=== PATIENT | male | born 1985 | race Caucasian/White ===

== ENCOUNTER 2018-08-15 04:39 | Emergency (ER) | payer SELFPAY ==
[2018-08-15 04:54] VITALS: BP 136/78; PULSE 48; TEMP 98.5; BMI 20.6
[2018-08-15] MEDS ORDERED: PANTOPRAZOLE SODIUM 40 MG in SODIUM CHLORIDE 100 ML IVPB ONE (05:00)
[2018-08-15] MEDS ORDERED: SODIUM CHLORIDE 1,000 ML IV STA (05:00)
[2018-08-15] MEDS ORDERED: ACETAMINOPHEN 1000 MG/100 ML VIAL (NON FORMULARY) IVPB ONE (05:00)
[2018-08-15] MEDS ORDERED: ONDANSETRON 4 MG/2 ML VIAL IVPB ONE (05:00)
--- NOTE | 2018-08-15 05:10 | PDOC ---
History of Present Illness - General Chief Complaint: Rectal Bleed Stated Complaint: RECTAL BLEED, OPIOID WITHDRAWL Time Seen by Provider: 08/15/18 04:54 - History of Present Illness Initial Comments: 08/15/18 05:04 33 M with h/o opiate abuse presents to ED seeking detox. Pt states he takes pills, usually oxycodone. His last use was 2 days ago, and since then pt reports that he is withdrawing from opiates. Pt complains of abdominal cramps, nausea, diarrhea, and restlessness. Denies F/C. States that these symptoms are the same as when he previously detoxed from opiates several years ago. Denies any other substance use. Denies ETOH. Pt also complains of seeing red streaks of blood in his stool today. Denies any dark stools, denies yousuf blood in stool. Past History - Past Medical History Allergies/Adverse Reactions: Allergies Allergy/AdvReac Type Severity Reaction Status Date / Time No Known Allergies Allergy Verified 08/15/18 04:44 Home Medications: Ambulatory Orders NK [No Known Home Medication] 08/15/18 COPD: No GI Disorders: Yes (ULCERS) Other medical history: OPIOID DEPENDENCY - Surgical History Appendectomy: Yes - Suicide/Smoking/Psychosocial Hx Smoking Status: Yes Smoking History: Current every day smoker Have you smoked in the past 12 months: Yes Number of Cigarettes Smoked Daily: 20 Information on smoking cessation initiated: Yes 'Breaking Loose' booklet given: 04/06/16 Hx Alcohol Use: No Drug/Substance Use Hx: Yes (OPOID) Review of Systems - Review of Systems Comments:: 08/15/18 05:07 GENERAL/CONSTITUTIONAL: No fever or chills. No weakness. HEAD, EYES, EARS, NOSE AND THROAT: No change in vision. No ear pain or discharge. No sore throat. CARDIOVASCULAR: No chest pain, no shortness of breath, no loss of consciousness RESPIRATORY: No cough, wheezing, or hemoptysis. GASTROINTESTINAL: + nausea, vomiting, and diarrhea GENITOURINARY: No dysuria, frequency, or change in urination. MUSCULOSKELETAL: No joint or muscle swelling or pain. No neck or back pain. SKIN: No rash NEUROLOGIC: No vertigo, no change in strength/sensation. ENDOCRINE: No increased thirst. No abnormal weight change. HEMATOLOGIC/LYMPHATIC: No anemia, easy bleeding, or history of blood clots. ALLERGIC/IMMUNOLOGIC: No hives or skin allergy. *Physical Exam - Vital Signs Last Vital Signs Temp Pulse Resp BP Pulse Ox 98.5 F 48 L 18 136/78 100 08/15/18 04:45 08/15/18 04:45 08/15/18 04:45 08/15/18 04:45 08/15/18 04:45 - Physical Exam Comments: 08/15/18 05:08 GENERAL: Awake, alert, and fully oriented, in no acute distress. HEAD: No signs of trauma EYES: PERRLA, EOMI, sclera anicteric, conjunctiva clear ENT: Auricles normal inspection, hearing grossly normal, nares patent, oropharynx clear without exudates. Moist mucosa NECK: Nontender, no stepoffs, Normal ROM, supple, no lymphadenopathy, JVD, or masses LUNGS: Breath sounds equal, clear to auscultation bilaterally. No wheezes, and no crackles HEART: Regular rate and rhythm, normal S1 and S2, no murmurs, rubs or gallops ABDOMEN: + epigastric TTP, normoactive bowel sounds. No guarding, no rebound. No masses EXTREMITIES: Normal range of motion, no edema. No clubbing or cyanosis. No cords, erythema, or tenderness NEUROLOGICAL: Cranial nerves II through XII intact. 5/5 strength and sensation in all extremities, Normal speech, normal gait, normal cerebellar function SKIN: Warm, Dry, normal turgor, no rashes or lesions noted. Moderate Sedation - Procedure Monitoring Vital Signs: Procedure Monitoring Vital Signs Temperature 98.5 F 08/15/18 04:45 Pulse Rate 48 L 08/15/18 04:45 Respiratory Rate 18 08/15/18 04:45 Blood Pressure 136/78 08/15/18 04:45 O2 Sat by Pulse Oximetry (%) 100 08/15/18 04:45 ED Treatment Course - LABORATORY CBC & Chemistry Diagram: 08/15/18 05:10 08/15/18 05:10 Medical Decision Making - Medical Decision Making 08/15/18 05:08 33 M presenting with epigastric cramps, nausea, and diarrhea, stating that he is withdrawing from opiates. Pt well appearing with stable vitals, though very restless and anxious on exam. Pt also complaining of blood streaked stools, with no melena or hematochezia. - Labs, UA, Utox - IVF, GI cocktail, ativan - Pt states he is interested in going to detox 08/15/18 06:18 Spoke with chargemaster specialist at [facility], who states they will have beds available this morning. 08/15/18 06:35 Labs wnl UTox + for opiates, methadone, marijuana Pt reassessed - feels much better, still interested in detox. Will DC to [facility] *DC/Admit/Observation/Transfer Diagnosis at time of Disposition: Opiate withdrawal - Discharge Dispostion Disposition: HOME Condition at time of disposition: Stable - Referrals - Patient Instructions Printed Discharge Instructions: DI for Drug or Alcohol Withdrawal Additional Instructions: Proceed directly to [facility] detox facility for further management. If you experience abdominal pain, fevers, or any other concerning symptoms, return to the ER immediately. - Post Discharge Activity - Attestations Physician Attestion: 08/15/18 06:38 I, Dr. Dax Dumas MD, attest that this document has been prepared under my direction and personally reviewed by me in its entirety. I further attest, that it accurately reflects all work, treatment, procedures and medical decision -making performed by me.
[2018-08-15] MEDS ORDERED: PANTOPRAZOLE SODIUM 40 MG VIAL ONE (05:16)
[2018-08-15] MEDS ORDERED: ACETAMINOPHEN INJECTION 100 ML IVPB ONE (05:16)
[2018-08-15] MEDS ORDERED: ONDANSETRON 4 MG/2 ML VIAL ONE (05:16)
[2018-08-15] MEDS ORDERED: LORazepam 2 MG/ML SDV VIAL ONE (05:25)
[2018-08-15 05:53] LABS: BASO % 0.2 % (0-2.0); HEMATOCRIT 41.1 % (35.4-49); HEMOGLOBIN 14.4 GM/dL (11.7-16.9); LYMPH % 11.2 % (8-40); MCH 30.9 pg (25.7-33.7); MCHC 34.9 g/dl (32.0-35.9); MEAN CELL VOLUME 88.3 fl (80-96); MEAN PLT VOLUME 7.8 fl (7.5-11.1); MONO % 3.3 % (3.8-10.2); NEUT % 85.3 % (42.8-82.8); PLATELET COUNT 321 K/MM3 (134-434); RBC 4.66 M/mm3 (4.00-5.60); RDW 14.3 % (11.9-15.9); WHITE BLOOD COUNT 12.7 K/mm3 (4.0-10.0)
[2018-08-15 05:56] LABS: URINE APPEARANCE CLEAR; URINE BILIRUBIN NEGATIVE (<2.0 mg/dL); URINE COLOR AMBER; URINE GLUCOSE (UA) NEGATIVE (NEGATIVE); URINE KETONE 1+ (NEGATIVE); URINE LEUK ESTERASE NEGATIVE (NEGATIVE); URINE NITRITE NEGATIVE (NEGATIVE); URINE PROTEIN 1+ (NEGATIVE); URINE UROBILINOGEN 4.0 E.U/dl mg/dL (0.2-1.0)
[2018-08-15 06:05] LABS: URINE BACTERIA RARE /hpf (NONE SEEN); URINE MUCUS MODERATE
[2018-08-15 06:13] LABS: COCAINE, UR NEGATIVE ng/ml (CUTOFF=300); PHENCYCLIDINE,URINE NEGATIVE ng/ml (CUTOFF=25); URINE AMPHETAMINES NEGATIVE ng/ml (CUTOFF=500); URINE BARBITURATES NEGATIVE ng/ml (CUTOFF=200); URINE BENZODIAZEPINES NEGATIVE ng/ml (CUTOFF=200)
[2018-08-15 06:21] LABS: ALBUMIN 4.4 g/dl (3.4-5.0); ALK PHOS 67 U/L (45-117); ANION GAP 9 MMOL/L (8-16); BILIRUBIN,TOTAL 1.4 mg/dL (0.2-1); BLOOD UREA NITROGEN 14 mg/dL (7-18); CALCIUM 9.2 mg/dL (8.5-10.1); CHLORIDE 97 mmol/L (98-107); CO2 27 mmol/L (21-32); CREATININE 0.8 mg/dL (0.55-1.3); GLUCOSE,RANDOM 112 mg/dL (74-106); LIPASE 118 U/L (73-393); POTASSIUM 3.9 mmol/L (3.5-5.1); SGOT/AST 11 U/L (15-37); SGPT/ALT 28 U/L (13-61); SODIUM 133 mmol/L (136-145); TOT PROT 7.5 g/dl (6.4-8.2)
[2018-08-15 06:32] LABS: METHADONE, UR POSITIVE ng/ml (CUTOFF=300); OPIATES, URI POSITIVE ng/ml (CUTOFF=300)
--- NOTE | 2018-08-15 10:21 | HP ---
COWS - Scale Resting Pulse: 0= SC 80 or Below Sweatin= Chills/Flushing Restless Observation: 3= Extraneous Movement Pupil Size: 1= Pupils >than Normal Bone or Joint Aches: 2= Severe Diffuse Aches Runny Nose/ Eye Tearin= Runny Nose/Eyes GI Upset > 30mins: 2= Nausea/Diarrhea Tremor Observation: 2= Slight Tremor Visible Yawning Observation: 1= 1-2x During Session Anxiety or Irritability: 2=Irritable/Anxious Goose Flesh Skin: 0=Smooth Skin COWS Score: 16 CIWA Score - Admission Criteria OASAS Guidelines: Admission for Medically Managed Detox: Requires at least one of the followin. CIWA greater than 12 2. Seizures within the past 24 hours 3. Delirium tremens within the past 24 hours 4. Hallucinations within the past 24 hours 5. Acute intervention needed for co occurring medical disorder 6. Acute intervention needed for co occurring psychiatric disorder 7. Severe withdrawal that cannot be handled at a lower level of care (continued vomiting, continued diarrhea, abnormal vital signs) requiring intravenous medication and/or fluids 8. Admission ROS S - HPI Chief Complaint: i need help to stop using heroin,marijuana,suboxone abused Allergies/Adverse Reactions: Allergies Allergy/AdvReac Type Severity Reaction Status Date / Time No Known Allergies Allergy Verified 08/15/18 04:44 History of Present Illness: this 33 years old male with heroin dependence seeking detox,withdrawal symptom, last detox 10/24 at [facility],completed, history of upper gi bleeding admitted at [facility] 10/24 with transfusion pain in the body and back took suboxone at midnight last night seen at [facility] last night ,clear to return to [facility] for detox weight loss no medication now lyme disease in 2016 plan for out patient program after detox Exam Limitations: No Limitations - Ebola screening Have you traveled outside of the country in the last 21 days: No - Review of Systems Constitutional: Chills, Loss of Appetite, Malaise, Night Sweats, Changes in sleep, Weakness, Unintentional Wgt. Loss EENT: reports: Tearing, Nose Congestion Respiratory: reports: No Symptoms reported Cardiac: reports: No Symptoms Reported GI: reports: Diarrhea, Nausea, Vomiting, Abdominal cramping : reports: No Symptoms Reported Musculoskeletal: reports: Back Pain, Joint Pain, Muscle Pain, Joint Stiffness Integumentary: reports: Dryness Neuro: reports: Headache, Tremors Endocrine: reports: No Symptoms Reported Hematology: reports: No Symptoms Reported Psychiatric: reports: No Sypmtoms Reported, Judgement Intact, Mood/Affect Appropiate, Orientated x3 (insomnia) Other Systems: Reviewed and Negative Patient History - Patient Medical History Hx Anemia: No Hx Asthma: No Hx Chronic Obstructive Pulmonary Disease (COPD): No Hx Cancer: No Hx Cardiac Disorders: No Hx Congestive Heart Failure: No Hx Hypertension: No Hx Hypercholesterolemia: No Hx Pacemaker: No HX Cerebrovascular Accident: No Hx Seizures: No Hx Dementia: No Hx Diabetes: No Hx Gastrointestinal Disorders: Yes (ULCERS upper gi bleeding) Hx Liver Disease: No Hx Genitourinary Disorders: No Hx Sexually Transmitted Disorders: No Hx Renal Disease (ESRD): No Hx Thyroid Disease: No Hx Human Immunodeficiency Virus (HIV): No (last 10/24 negative) Hx Hepatitis C: No Hx Depression: No Hx Suicide Attempt: No Hx Bipolar Disorder: No Hx Schizophrenia: No Other Medical History: no suicidal,no homicidal - Patient Surgical History Past Surgical History: Yes Hx Appendectomy: Yes - PPD History Previous Implant?: Yes Documented Results: Negative w/o proof PPD to be Administered?: Yes - Smoking Cessation Smoking history: Current every day smoker Have you smoked in the past 12 months: Yes Aproximately how many cigarettes per day: 20 Hx Chewing Tobacco Use: No Initiated information on smoking cessation: Yes 'Breaking Loose' booklet given: 08/15/18 - Substance & Tx. History Hx Alcohol Use: No Hx Substance Use: Yes Substance Use Type: Heroin Hx Substance Use Treatment: Yes ([facility] in 10/24 completed) Family Disease History - Family Disease History Family History: Denies Admission Physical Exam [facility] - Vital Signs Vital Signs: Vital Signs - 24 hr 08/15/18 04:45 Temperature 98.5 F Pulse Rate 48 L Respiratory 18 Rate Blood Pressure 136/78 O2 Sat by Pulse 100 Oximetry (%) - Physical General Appearance: Yes: Moderate Distress, Tremorous, Irritable, Sweating, Anxious HEENTM: Yes: Normal ENT Inspection, KAROLYN, Pharynx Normal Respiratory: Yes: Lungs Clear, Normal Breath Sounds Neck: Yes: Within Normal Limits, Supple, Trachea in good position Breast: Yes: Within Normal Limits Cardiology: Yes: Within Normal Limits, Regular Rhythm, Regular Rate, S1, S2 Abdominal: Yes: Normal Bowel Sounds, Soft, Organomegaly Genitourinary: Yes: Within Normal Limits Musculoskeletal: Yes: Back pain, Muscle Pain Extremities: Yes: Tremors Neurological: Yes: it infrastructure specialist II-XII NML intact, Alert, Motor Strength 5/5 Integumentary: Yes: Dry Lymphatic: Yes: Within Normal Limits - Diagnostic (1) Opiate withdrawal Status: Acute (2) Lyme arthritis Status: Acute (3) Cannabis abuse Status: Acute (4) Weight loss Status: Acute (5) History of upper gastrointestinal bleeding Status: Acute (6) Nicotine dependence Status: Acute (7) History of appendectomy Status: Acute Cleared for Admission S - Detox or Rehab [facility] Level of Care: Medically Managed Detox Regimen/Protocol: Methadone
[2018-08-15] MEDS ORDERED: ACETAMINOPHEN 325 MG TABLET (FP) PO PRN (10:33)
[2018-08-15] MEDS ORDERED: MAGNESIUM HYDROX 2400MG/30ML ORAL SUSPENSION 30 ML CUP PO PRN (10:33)
[2018-08-15] MEDS ORDERED: guaiFENesin/D-METHORPHAN HB 10 ML UNIT-DOSE CUPS PO PRN (10:33)
[2018-08-15] MEDS ORDERED: NICOTINE POLACRILEX 2 MG GUM BC PRN (10:33)
[2018-08-15] MEDS ORDERED: P-EPHED 60MG/TRIPROLIDI 2.5MG TABLET PO PRN (10:33)
[2018-08-15] MEDS ORDERED: diazePAM 5 MG TABLET PO PRN (10:33)
[2018-08-15] MEDS ORDERED: hydrOXYzine PAMOATE 50 MG CAPSULE (FP) PO PRN (10:33)
[2018-08-15] MEDS ORDERED: LOPERAMIDE HCL 2 MG CAPSULE PO PRN (10:33)
[2018-08-15] MEDS ORDERED: IBUPROFEN 400 MG TABLET (FP) PO PRN (10:33)
[2018-08-15] MEDS ORDERED: MENTHOL/PHENOL 1 EACH UD MM PRN (10:33)
[2018-08-15] MEDS ORDERED: MAG HYDROX/AL HYDROX/SIMETH 30 ML UNIT-DOSE CUP PO PRN (10:33)
[2018-08-15] MEDS ORDERED: MAGNESIUM CITRATE 300 ML BOTTLE PO PRN (10:33)
[2018-08-15] MEDS ORDERED: CYCLOBENZAPRINE HCL 10 MG TABLET (FP) PO PRN (10:38)
[2018-08-15] MEDS ORDERED: RANITIDINE HCL 150 MG TABLET (FP) PO ONE (10:40)
[2018-08-15] MEDS ORDERED: NICOTINE 21 MG/24 HOURS TOPICAL PATCH TD SCH (10:45)
[2018-08-15] MEDS ORDERED: THIAMINE HCL 100 MG TABLET (FP) PO SCH (22:00)
[2018-08-15] MEDS ORDERED: MELATONIN 5 MG TABLETS PO PRN (22:00)
[2018-08-15] MEDS ORDERED: cloNIDine HCL 0.1 MG TABLET PO SCH (22:00)
[2018-08-15] MEDS ORDERED: RANITIDINE HCL 150 MG TABLET (FP) PO SCH (22:00)
[2018-08-15] MEDS ORDERED: METHADONE HCL 5 MG TABLET (FOR DETOX USE ONLY) PO ONE (23:00)
[2018-08-16] MEDS ORDERED: METHADONE HCL 10 MG TABLET (FOR DETOX USE ONLY) PO ONE (10:00)
[2018-08-16] MEDS ORDERED: PRENATAL VITAMINS W/ FOLIC ACID TABLET (FP) PO SCH (10:00)
[2018-08-17] MEDS ORDERED: METHADONE HCL 5 MG TABLET (FOR DETOX USE ONLY) PO ONE (10:00)
[2018-08-18] MEDS ORDERED: METHADONE HCL 5 MG TABLET (FOR DETOX USE ONLY) PO ONE (10:00)
[2018-08-19] MEDS ORDERED: METHADONE HCL 10 MG TABLET (FOR DETOX USE ONLY) PO ONE (10:00)
[2018-08-20] MEDS ORDERED: METHADONE HCL 5 MG TABLET (FOR DETOX USE ONLY) PO ONE (06:00)
== END 2018-08-15 08:55 | disposition home or self-care (01) ==
LOC: FER 04:39
PROC: 3E033GC Introduction of Other Therapeutic Substance into Peripheral Vein, Percutaneous Approach (ICD-10-PCS; principal; 2018-08-15)
PROC: 3E033NZ Introduction of Analgesics, Hypnotics, Sedatives into Peripheral Vein, Percutaneous Approach (ICD-10-PCS; 2018-08-15)
PROC: 3E0337Z Introduction of Electrolytic and Water Balance Substance into Peripheral Vein, Percutaneous Approach (ICD-10-PCS; 2018-08-15)
DX: F11.23 Opioid dependence with withdrawal (principal); F17.210 Nicotine dependence, cigarettes, uncomplicated
CPT/HCPCS: 36415; 80053; 80307; 81003; 81015; 83690; 85025; 99281-25; J0131; J7030

== ENCOUNTER 2018-08-15 09:36 | Inpatient (IN) | payer OTHER ==
[2018-08-15 10:00] VITALS: BMI 21.2
--- NOTE | 2018-08-15 11:21 | HP ---
COWS - Scale Resting Pulse: 1= TN 81-100 Sweatin= Chills/Flushing Restless Observation: 3= Extraneous Movement Pupil Size: 1= Pupils >than Normal Bone or Joint Aches: 2= Severe Diffuse Aches Runny Nose/ Eye Tearin= Nasal Congestion GI Upset > 30mins: 3= Vomiting/Diarrhea Tremor Observation: 2= Slight Tremor Visible Yawning Observation: 1= 1-2x During Session Anxiety or Irritability: 2=Irritable/Anxious Goose Flesh Skin: 0=Smooth Skin COWS Score: 17 CIWA Score - Admission Criteria OASAS Guidelines: Admission for Medically Managed Detox: Requires at least one of the followin. CIWA greater than 12 2. Seizures within the past 24 hours 3. Delirium tremens within the past 24 hours 4. Hallucinations within the past 24 hours 5. Acute intervention needed for co occurring medical disorder 6. Acute intervention needed for co occurring psychiatric disorder 7. Severe withdrawal that cannot be handled at a lower level of care (continued vomiting, continued diarrhea, abnormal vital signs) requiring intravenous medication and/or fluids 8. Admission ROS S - HPI Chief Complaint: i need help to stop using heroin Allergies/Adverse Reactions: Allergies Allergy/AdvReac Type Severity Reaction Status Date / Time No Known Allergies Allergy Verified 08/15/18 04:44 History of Present Illness: this 33 years old male with heroin dependence seeking detox from heroin, seen in [facility] last night history of upper gi bleeding admitted in 10/24 at [facility] receiving blood transfusion took suboxone last night midnight weight loss s/p appendectomy lyme disease last detox in 10/24 at [facility] Exam Limitations: No Limitations - Ebola screening Have you traveled outside of the country in the last 21 days: No Have you had contact with anyone from an Ebola affected area: No Have you been sick,other than usual withdrawal symptoms: No Do you have a fever: No - Review of Systems Constitutional: Chills, Loss of Appetite, Malaise, Night Sweats, Changes in sleep, Weakness, Unintentional Wgt. Loss EENT: reports: Tearing, Nose Congestion Respiratory: reports: No Symptoms reported Cardiac: reports: Palpitations GI: reports: Diarrhea, Poor Appetite, Vomiting, Abdominal cramping : reports: No Symptoms Reported Musculoskeletal: reports: Back Pain, Muscle Pain Integumentary: reports: Dryness Neuro: reports: No Symptoms reported, Tremors Endocrine: reports: No Symptoms Reported Hematology: reports: No Symptoms Reported Psychiatric: reports: No Sypmtoms Reported, Judgement Intact, Mood/Affect Appropiate, Orientated x3, other Other Systems: Reviewed and Negative Patient History - Patient Medical History Hx Anemia: No Hx Asthma: No Hx Chronic Obstructive Pulmonary Disease (COPD): No Hx Cancer: No Hx Cardiac Disorders: No Hx Congestive Heart Failure: No Hx Hypertension: No Hx Hypercholesterolemia: No Hx Pacemaker: No HX Cerebrovascular Accident: No Hx Seizures: No Hx Diabetes: No Hx Gastrointestinal Disorders: Yes (upper GI bleed in 10/24) Hx Liver Disease: No Hx Genitourinary Disorders: No Hx Sexually Transmitted Disorders: No Hx Renal Disease (ESRD): No Hx Thyroid Disease: No Hx Human Immunodeficiency Virus (HIV): No Hx Hepatitis C: No Hx Depression: No Hx Suicide Attempt: No Hx Bipolar Disorder: No Hx Schizophrenia: No Other Medical History: s/p appendectomy,no suicidal,no homicidal - Patient Surgical History Past Surgical History: Yes Hx Neurologic Surgery: No Hx Cataract Extraction: No Hx Cardiac Surgery: No Hx Lung Surgery: No Hx Breast Surgery: No Hx Breast Biopsy: No Hx Abdominal Surgery: No Hx Appendectomy: Yes (at age 8 yrs) Hx Cholecystectomy: No Hx Genitourinary Surgery: No Hx Section: No Hx Orthopedic Surgery: No Other Surgical History: Pt had an upper GI bleed in 10/24.s/p upper endoscopy, cauterization and rosen Anesthesia Reaction: No - PPD History Previous Implant?: No Documented Results: Negative w/o proof Implanted On Prior [facility] Admission?: No PPD to be Administered?: Yes - Smoking Cessation Smoking history: Current every day smoker Have you smoked in the past 12 months: Yes Aproximately how many cigarettes per day: 20 Hx Chewing Tobacco Use: No Initiated information on smoking cessation: Yes 'Breaking Loose' booklet given: 08/15/18 - Substance & Tx. History Hx Alcohol Use: No Hx Substance Use: Yes Substance Use Type: Heroin, Marijuana Hx Substance Use Treatment: Yes (10/24 [facility]) - Substances Abused Heroin Route: Inhalation Frequency: Daily Amount used: 1 gram Age of first use: 31 Date of Last Use: 08/13/18 Marijuana/Hashish Route: Smoking Frequency: 1-2 times per week Amount used: 1 gram Age of first use: 13 Date of Last Use: 08/14/18 suboxone Route: Oral Frequency: 1-3 times last 30 days Amount used: 1/2 tab Age of first use: 33 Date of Last Use: 08/15/18 Family Disease History - Family Disease History Family History: Denies Admission Physical Exam [facility] - Vital Signs Vital Signs: Vital Signs - 24 hr 08/15/18 09:57 Temperature 98.6 F Pulse Rate 56 L Respiratory 18 Rate Blood Pressure 135/70 - Physical General Appearance: Yes: Moderate Distress, Tremorous, Irritable, Sweating, Anxious HEENTM: Yes: Normocephalic, KAROLYN, Pharynx Normal Respiratory: Yes: Within Normal Limits, Lungs Clear, Normal Breath Sounds Neck: Yes: Within Normal Limits, Supple, Trachea in good position Breast: Yes: Within Normal Limits Cardiology: Yes: Within Normal Limits, Regular Rhythm, Regular Rate, S1, S2 Abdominal: Yes: Within Normal Limits, Normal Bowel Sounds, Non Tender, Flat, Soft Genitourinary: Yes: Within Normal Limits Back: Yes: Within Normal Limits, Normal Inspection, Muscle Spasm Musculoskeletal: Yes: Back pain, Joint Stiffness, Muscle Pain Neurological: Yes: room service supervisor II-XII NML intact, Alert, Motor Strength 5/5 Integumentary: Yes: Dry Lymphatic: Yes: Within Normal Limits - Diagnostic (1) Opioid dependence with withdrawal Current Visit: Yes Status: Acute (2) Cocaine dependence Current Visit: Yes Status: Acute (3) History of appendectomy Current Visit: No Status: Acute (4) History of upper gastrointestinal bleeding Current Visit: No Status: Acute (5) Lyme arthritis Current Visit: No Status: Acute (6) Nicotine dependence Current Visit: No Status: Acute (7) Weight loss Current Visit: No Status: Acute Cleared for Admission [facility] - Detox or Rehab [facility] Level of Care: Medically Managed Detox Regimen/Protocol: Methadone [facility] Breath Alcohol Content Breath Alcohol Content: 0 Urine Drug Screen - Results Drug Screen Negative: No Urine Drug Screen Results: THC-Marijuana, OPI-Opiates, BUP-Suboxone Inpatient Rehab Admission - Rehab Decision to Admit Inpatient rehab admission?: No
[2018-08-15] MEDS ORDERED: P-EPHED 60MG/TRIPROLIDI 2.5MG TABLET PO PRN (11:29)
[2018-08-15] MEDS ORDERED: MENTHOL/PHENOL 1 EACH UD MM PRN (11:29)
[2018-08-15] MEDS ORDERED: MAGNESIUM HYDROX 2400MG/30ML ORAL SUSPENSION 30 ML CUP PO PRN (11:29)
[2018-08-15] MEDS ORDERED: NICOTINE POLACRILEX 2 MG GUM BC PRN (11:29)
[2018-08-15] MEDS ORDERED: MAGNESIUM CITRATE 300 ML BOTTLE PO PRN (11:29)
[2018-08-15] MEDS ORDERED: MAG HYDROX/AL HYDROX/SIMETH 30 ML UNIT-DOSE CUP PO PRN (11:29)
[2018-08-15] MEDS ORDERED: IBUPROFEN 400 MG TABLET (FP) PO PRN (11:29)
[2018-08-15] MEDS ORDERED: LOPERAMIDE HCL 2 MG CAPSULE PO PRN (11:29)
[2018-08-15] MEDS ORDERED: guaiFENesin/D-METHORPHAN HB 10 ML UNIT-DOSE CUPS PO PRN (11:29)
[2018-08-15] MEDS: diazePAM 5 MG TABLET PO PRN ×3 (13:39→22:08)
[2018-08-15] MEDS: CYCLOBENZAPRINE HCL 10 MG TABLET (FP) PO PRN ×2 (13:43→22:07)
[2018-08-15] MEDS: NICOTINE 21 MG/24 HOURS TOPICAL PATCH TD SCH (13:44)
[2018-08-15 14:52] LABS: URINE APPEARANCE CLEAR; URINE BILIRUBIN NEGATIVE (<2.0 mg/dL); URINE COLOR STRAW; URINE GLUCOSE (UA) NEGATIVE (NEGATIVE); URINE KETONE NEGATIVE (NEGATIVE); URINE LEUK ESTERASE NEGATIVE (NEGATIVE); URINE NITRITE NEGATIVE (NEGATIVE); URINE PROTEIN NEGATIVE (NEGATIVE); URINE UROBILINOGEN NEGATIVE mg/dL (0.2-1.0)
--- NOTE | 2018-08-15 16:47 | EKG ---
Test Reason : Blood Pressure : / mmHG Vent. Rate : 065 BPM Atrial Rate : 065 BPM P-R Int : 154 ms QRS Dur : 124 ms QT Int : 448 ms P-R-T Axes : 077 062 046 degrees QTc Int : 465 ms NORMAL SINUS RHYTHM RIGHT BUNDLE BRANCH BLOCK ABNORMAL ECG NO PREVIOUS ECGS AVAILABLE Confirmed by GUS PHILIPPE, MILAGRO ([id number]) on 08/15/2018 4:46:36 PM Referred By: DR LANG Confirmed By:MILAGRO WEBER MD
[2018-08-15] MEDS: cloNIDine HCL 0.1 MG TABLET PO SCH (22:07)
[2018-08-15] MEDS: MELATONIN 5 MG TABLETS PO PRN (22:09)
[2018-08-15] MEDS: THIAMINE HCL 100 MG TABLET (FP) PO SCH (22:10)
[2018-08-15] MEDS ORDERED: METHADONE HCL 10 MG TABLET (FOR DETOX USE ONLY) PO ONE (23:00)
[2018-08-16] MEDS: CYCLOBENZAPRINE HCL 10 MG TABLET (FP) PO PRN ×3 (08:37→22:30)
[2018-08-16] MEDS ORDERED: METHADONE HCL 10 MG TABLET (FOR DETOX USE ONLY) PO ONE (10:00)
[2018-08-16 10:13] LABS: HEMATOCRIT 40.8 % (35.4-49); HEMOGLOBIN 14.1 GM/dL (11.7-16.9); MCH 30.8 pg (25.7-33.7); MCHC 34.5 g/dl (32.0-35.9); MEAN CELL VOLUME 89.4 fl (80-96); MEAN PLT VOLUME 8.3 fl (7.5-11.1); PLATELET COUNT 335 K/MM3 (134-434); RBC 4.57 M/mm3 (4.00-5.60); RDW 13.9 % (11.9-15.9); WHITE BLOOD COUNT 11.5 K/mm3 (4.0-10.0)
[2018-08-16] MEDS: PRENATAL VITAMINS W/ FOLIC ACID TABLET (FP) PO SCH (10:33)
[2018-08-16] MEDS: cloNIDine HCL 0.1 MG TABLET PO SCH ×2 (10:33→22:30)
[2018-08-16] MEDS: diazePAM 5 MG TABLET PO PRN ×3 (10:33→20:41)
[2018-08-16] MEDS: NICOTINE 21 MG/24 HOURS TOPICAL PATCH TD SCH (10:35)
[2018-08-16 11:01] LABS: ALBUMIN 4.7 g/dl (3.4-5.0); ALK PHOS 67 U/L (45-117); ANION GAP 11 MMOL/L (8-16); BILIRUBIN,TOTAL 1.7 mg/dL (0.2-1); BLOOD UREA NITROGEN 14 mg/dL (7-18); CALCIUM 9.5 mg/dL (8.5-10.1); CHLORIDE 98 mmol/L (98-107); CO2 25 mmol/L (21-32); CREATININE 0.9 mg/dL (0.55-1.3); GLUCOSE,RANDOM 149 mg/dL (74-106); POTASSIUM 4.2 mmol/L (3.5-5.1); SGOT/AST 14 U/L (15-37); SGPT/ALT 27 U/L (13-61); SODIUM 134 mmol/L (136-145); TOT PROT 7.7 g/dl (6.4-8.2)
[2018-08-16] MEDS: LIDOCAINE 5% TOPICAL PATCH TP SCH (12:23)
--- NOTE | 2018-08-16 16:52 | PN ---
BHS COWS - Scale Resting Pulse: 0= MT 80 or Below Sweatin= Chills/Flushing Restless Observation: 1= Difficult to Sit Still Pupil Size: 0= Normal to Room Light Bone or Joint Aches: 4=Acute Joint/Muscle Pain Runny Nose/ Eye Tearin= None GI Upset > 30mins: 0= None Tremor Observation of Outstretched Hands: 0= None Yawning Observation: 1= 1-2x During Session Anxiety or Irritability: 2=Irritable/Anxious Goose Flesh Skin: 3=Piloerection COWS Score: 12 BHS Progress Note (SOAP) Subjective: Poor Appetite, Sweating, Body Aches, Interrupted Sleep. Objective: PATIENT A & O X 3, OBSERVED AMBULATING ON UNIT. IN NO ACUTE DISTRESS. 08/16/18 16:51 Vital Signs Temperature 98.9 F 08/16/18 13:10 Pulse Rate 60 08/16/18 13:10 Respiratory Rate 18 08/16/18 13:10 Blood Pressure 98/62 08/16/18 13:10 O2 Sat by Pulse Oximetry (%) Laboratory Tests 08/15/18 08/16/18 08/16/18 13:07 07:00 07:00 WBC 11.5 H RBC 4.57 Hgb 14.1 Hct 40.8 MCV 89.4 MCH 30.8 MCHC 34.5 RDW 13.9 Plt Count 335 MPV 8.3 Sodium 134 L Potassium 4.2 Chloride 98 Carbon Dioxide 25 Anion Gap 11 BUN 14 Creatinine 0.9 Creat Clearance w eGFR > 60 Random Glucose 149 H Calcium 9.5 Total Bilirubin 1.7 H AST 14 L ALT 27 Alkaline Phosphatase 67 Total Protein 7.7 Albumin 4.7 Urine Color Straw Urine Appearance Clear Urine pH 7.0 Ur Specific [place] 1.005 L Urine Protein Negative Urine Glucose (UA) Negative Urine Ketones Negative Urine Blood 1+ H Urine Nitrite Negative Urine Bilirubin Negative Urine Urobilinogen Negative Ur Leukocyte Esterase Negative Urine WBC (Auto) <1 Urine RBC (Auto) 1 RPR Titer 08/16/18 07:00 WBC RBC Hgb Hct MCV MCH MCHC RDW Plt Count MPV Sodium Potassium Chloride Carbon Dioxide Anion Gap BUN Creatinine Creat Clearance w eGFR Random Glucose Calcium Total Bilirubin AST ALT Alkaline Phosphatase Total Protein Albumin Urine Color Urine Appearance Urine pH Ur Specific [place] Urine Protein Urine Glucose (UA) Urine Ketones Urine Blood Urine Nitrite Urine Bilirubin Urine Urobilinogen Ur Leukocyte Esterase Urine WBC (Auto) Urine RBC (Auto) RPR Titer Nonreactive Assessment: 08/16/18 16:51 WITHDRAWAL SYMPTOMS. LEUKOCYTOSIS. Plan: CONTINUE DETOX. INCREASE DAILY PO FLUID INTAKE. LIDODERM PATCH FOR LOWER BACK PAIN. REPEAT CBC TOMORROW AM FOR ELEVATED ADMISSION WBC LEVEL. BGM ACBK FOR ELEVATED ADMISSION GLUCOSE LEVEL.
[2018-08-16] MEDS: THIAMINE HCL 100 MG TABLET (FP) PO SCH (22:30)
[2018-08-16] MEDS: MELATONIN 5 MG TABLETS PO PRN (22:30)
[2018-08-16] MEDS: LIDOCAINE PATCH REMOVAL MC SCH (22:31)
[2018-08-17] MEDS: diazePAM 5 MG TABLET PO PRN ×3 (07:47→19:33)
[2018-08-17] MEDS ORDERED: METHADONE HCL 5 MG TABLET (FOR DETOX USE ONLY) PO ONE (10:00)
[2018-08-17] MEDS: cloNIDine HCL 0.1 MG TABLET PO SCH ×2 (10:26→22:33)
[2018-08-17] MEDS: PRENATAL VITAMINS W/ FOLIC ACID TABLET (FP) PO SCH (10:26)
[2018-08-17] MEDS: LIDOCAINE 5% TOPICAL PATCH TP SCH (10:30)
[2018-08-17] MEDS: NICOTINE 21 MG/24 HOURS TOPICAL PATCH TD SCH (10:30)
[2018-08-17 11:58] LABS: BASO % 0.9 % (0-2.0); EOS % 2.2 % (0-4.5); HEMATOCRIT 41.6 % (35.4-49); HEMOGLOBIN 14.4 GM/dL (11.7-16.9); LYMPH % 32.8 % (8-40); MCH 31.4 pg (25.7-33.7); MCHC 34.7 g/dl (32.0-35.9); MEAN CELL VOLUME 90.7 fl (80-96); MEAN PLT VOLUME 7.9 fl (7.5-11.1); MONO % 8.7 % (3.8-10.2); NEUT % 55.4 % (42.8-82.8); PLATELET COUNT 305 K/MM3 (134-434); RBC 4.59 M/mm3 (4.00-5.60); RDW 14.6 % (11.9-15.9); WHITE BLOOD COUNT 9.6 K/mm3 (4.0-10.0)
--- NOTE | 2018-08-17 14:29 | PN ---
BHS COWS - Scale Resting Pulse: 0= NM 80 or Below Sweatin= Chills/Flushing Restless Observation: 0= Sits Still Pupil Size: 0= Normal to Room Light Bone or Joint Aches: 4=Acute Joint/Muscle Pain Runny Nose/ Eye Tearin= None GI Upset > 30mins: 0= None Tremor Observation of Outstretched Hands: 2= Slight Tremor Visible Yawning Observation: 1= 1-2x During Session Anxiety or Irritability: 2=Irritable/Anxious Goose Flesh Skin: 0=Smooth Skin COWS Score: 10 BHS Progress Note (SOAP) Subjective: Sweating, Tremors, Body Aches. Objective: PATIENT A & O X 3, OBSERVED AMBULATING ON UNIT. IN NO ACUTE DISTRESS. 08/17/18 14:27 Vital Signs Temperature 97.8 F 08/17/18 13:15 Pulse Rate 71 08/17/18 13:15 Respiratory Rate 18 08/17/18 13:15 Blood Pressure 124/64 08/17/18 13:15 O2 Sat by Pulse Oximetry (%) Laboratory Tests 08/15/18 08/16/18 08/16/18 13:07 07:00 07:00 WBC 11.5 H RBC 4.57 Hgb 14.1 Hct 40.8 MCV 89.4 MCH 30.8 MCHC 34.5 RDW 13.9 Plt Count 335 MPV 8.3 Absolute Neuts (auto) Neutrophils % Lymphocytes % Monocytes % Eosinophils % Basophils % Nucleated RBC % Sodium 134 L Potassium 4.2 Chloride 98 Carbon Dioxide 25 Anion Gap 11 BUN 14 Creatinine 0.9 Creat Clearance w eGFR > 60 POC Glucometer Random Glucose 149 H Calcium 9.5 Total Bilirubin 1.7 H AST 14 L ALT 27 Alkaline Phosphatase 67 Total Protein 7.7 Albumin 4.7 Urine Color Straw Urine Appearance Clear Urine pH 7.0 Ur Specific [place] 1.005 L Urine Protein Negative Urine Glucose (UA) Negative Urine Ketones Negative Urine Blood 1+ H Urine Nitrite Negative Urine Bilirubin Negative Urine Urobilinogen Negative Ur Leukocyte Esterase Negative Urine WBC (Auto) <1 Urine RBC (Auto) 1 RPR Titer 08/16/18 08/17/18 08/17/18 07:00 06:20 07:40 WBC 9.6 RBC 4.59 Hgb 14.4 Hct 41.6 MCV 90.7 MCH 31.4 MCHC 34.7 RDW 14.6 Plt Count 305 MPV 7.9 Absolute Neuts (auto) 5.3 Neutrophils % 55.4 D Lymphocytes % 32.8 D Monocytes % 8.7 D Eosinophils % 2.2 D Basophils % 0.9 D Nucleated RBC % 0 Sodium Potassium Chloride Carbon Dioxide Anion Gap BUN Creatinine Creat Clearance w eGFR POC Glucometer 147 Random Glucose Calcium Total Bilirubin AST ALT Alkaline Phosphatase Total Protein Albumin Urine Color Urine Appearance Urine pH Ur Specific [place] Urine Protein Urine Glucose (UA) Urine Ketones Urine Blood Urine Nitrite Urine Bilirubin Urine Urobilinogen Ur Leukocyte Esterase Urine WBC (Auto) Urine RBC (Auto) RPR Titer Nonreactive LABS NOTED. RESULTS OF REPEAT CBC NOTED. WBC LEVEL NOW NOTED TO BE WITHIN NORMAL RANGE. 08/17/18 14:28 Assessment: 08/17/18 14:28 WITHDRAWAL SYMPTOMS. 08/17/18 14:28 Plan: CONTINUE DETOX. INCREASE DAILY PO FLUID INTAKE.
[2018-08-17] MEDS ORDERED: PANTOPRAZOLE 40 MG TABLET (FP) PO ONE (14:30)
[2018-08-17] MEDS: ACETAMINOPHEN 325 MG TABLET (FP) PO PRN (15:29)
[2018-08-17] MEDS: CYCLOBENZAPRINE HCL 10 MG TABLET (FP) PO PRN (22:33)
[2018-08-17] MEDS: diphenhydrAMINE HCL 25 MG CAPSULE (FP) PO PRN (22:33)
[2018-08-17] MEDS: THIAMINE HCL 100 MG TABLET (FP) PO SCH (22:33)
[2018-08-17] MEDS: LIDOCAINE PATCH REMOVAL MC SCH (22:34)
[2018-08-18] MEDS: ACETAMINOPHEN 325 MG TABLET (FP) PO PRN (09:34)
[2018-08-18] MEDS ORDERED: METHADONE HCL 5 MG TABLET (FOR DETOX USE ONLY) PO ONE (10:00)
[2018-08-18] MEDS: cloNIDine HCL 0.1 MG TABLET PO SCH ×2 (10:35→22:03)
[2018-08-18] MEDS: PANTOPRAZOLE 40 MG TABLET (FP) PO SCH (10:35)
[2018-08-18] MEDS: PRENATAL VITAMINS W/ FOLIC ACID TABLET (FP) PO SCH (10:36)
[2018-08-18] MEDS: NICOTINE 21 MG/24 HOURS TOPICAL PATCH TD SCH (10:36)
[2018-08-18] MEDS: LIDOCAINE 5% TOPICAL PATCH TP SCH (10:37)
[2018-08-18] MEDS: CYCLOBENZAPRINE HCL 10 MG TABLET (FP) PO PRN ×2 (13:16→18:08)
--- NOTE | 2018-08-18 14:59 | PN ---
[facility] COWS - Scale Resting Pulse: 0= [place] 80 or Below Sweatin= Chills/Flushing Restless Observation: 0= Sits Still Pupil Size: 0= Normal to Room Light Bone or Joint Aches: 2= Severe Diffuse Aches Runny Nose/ Eye Tearin= Nasal Congestion GI Upset > 30mins: 1= Stomach Cramp Tremor Observation of Outstretched Hands: 1= Tremor [place], Not Seen Yawning Observation: 1= 1-2x During Session Anxiety or Irritability: 1=Feels Anxious/Irritable Goose Flesh Skin: 0=Smooth Skin COWS Score: 8 S Progress Note (SOAP) Subjective: muscle cramping body aches mild tremor little sweating reported that he is doing well in detox regimen Objective: 08/18/18 14:58 Vital Signs Temperature 97.6 F 08/18/18 13:27 Pulse Rate 58 L 08/18/18 13:27 Respiratory Rate 16 08/18/18 13:27 Blood Pressure 109/80 08/18/18 13:27 O2 Sat by Pulse Oximetry (%) Laboratory Last Values WBC 9.6 K/mm3 (4.0-10.0) 08/17/18 07:40 RBC 4.59 M/mm3 (4.00-5.60) 08/17/18 07:40 Hgb 14.4 GM/dL (11.7-16.9) 08/17/18 07:40 Hct 41.6 % (35.4-49) 08/17/18 07:40 MCV 90.7 fl (80-96) 08/17/18 07:40 MCH 31.4 pg (25.7-33.7) 08/17/18 07:40 MCHC 34.7 g/dl (32.0-35.9) 08/17/18 07:40 RDW 14.6 % (11.9-15.9) 08/17/18 07:40 Plt Count 305 K/MM3 (134-434) 08/17/18 07:40 MPV 7.9 fl (7.5-11.1) 08/17/18 07:40 Absolute Neuts (auto) 5.3 K/mm3 (1.5-8.0) 08/17/18 07:40 Neutrophils % 55.4 % (42.8-82.8) D 08/17/18 07:40 Lymphocytes % 32.8 % (8-40) D 08/17/18 07:40 Monocytes % 8.7 % (3.8-10.2) D 08/17/18 07:40 Eosinophils % 2.2 % (0-4.5) D 08/17/18 07:40 Basophils % 0.9 % (0-2.0) D 08/17/18 07:40 Nucleated RBC % 0 % (0-0) 08/17/18 07:40 Sodium 134 mmol/L (136-145) L 08/16/18 07:00 Potassium 4.2 mmol/L (3.5-5.1) 08/16/18 07:00 Chloride 98 mmol/L (98-107) 08/16/18 07:00 Carbon Dioxide 25 mmol/L (21-32) 08/16/18 07:00 Anion Gap 11 MMOL/L (8-16) 08/16/18 07:00 BUN 14 mg/dL (7-18) 08/16/18 07:00 Creatinine 0.9 mg/dL (0.55-1.3) 08/16/18 07:00 Creat Clearance w eGFR > 60 (>60) 08/16/18 07:00 POC Glucometer 95 UNITS (80-120) 08/18/18 05:44 Random Glucose 149 mg/dL (74-106) H 08/16/18 07:00 Calcium 9.5 mg/dL (8.5-10.1) 08/16/18 07:00 Total Bilirubin 1.7 mg/dL (0.2-1) H 08/16/18 07:00 AST 14 U/L (15-37) L 08/16/18 07:00 ALT 27 U/L (13-61) 08/16/18 07:00 Alkaline Phosphatase 67 U/L (45-117) 08/16/18 07:00 Total Protein 7.7 g/dl (6.4-8.2) 08/16/18 07:00 Albumin 4.7 g/dl (3.4-5.0) 08/16/18 07:00 Urine Color Straw 08/15/18 13:07 Urine Appearance Clear 08/15/18 13:07 Urine pH 7.0 (5.0-8.0) 08/15/18 13:07 Ur Specific [place] 1.005 (1.010-1.035) L 08/15/18 13:07 Urine Protein Negative (NEGATIVE) 08/15/18 13:07 Urine Glucose (UA) Negative (NEGATIVE) 08/15/18 13:07 Urine Ketones Negative (NEGATIVE) 08/15/18 13:07 Urine Blood 1+ (NEGATIVE) H 08/15/18 13:07 Urine Nitrite Negative (NEGATIVE) 08/15/18 13:07 Urine Bilirubin Negative (<2.0 mg/dL) 08/15/18 13:07 Urine Urobilinogen Negative mg/dL (0.2-1.0) 08/15/18 13:07 Ur Leukocyte Esterase Negative (NEGATIVE) 08/15/18 13:07 Urine WBC (Auto) <1 /hpf (3-5) 08/15/18 13:07 Urine RBC (Auto) 1 /hpf (0-3) 08/15/18 13:07 RPR Titer Nonreactive (NONREACTIVE) 08/16/18 07:00 lab noted Assessment: 08/18/18 14:58 withdrawal sx Plan: continue detox
[2018-08-18] MEDS: MELATONIN 5 MG TABLETS PO PRN (22:03)
[2018-08-18] MEDS: THIAMINE HCL 100 MG TABLET (FP) PO SCH (22:03)
[2018-08-18] MEDS: diphenhydrAMINE HCL 25 MG CAPSULE (FP) PO PRN (22:03)
[2018-08-18] MEDS: LIDOCAINE PATCH REMOVAL MC SCH (22:04)
[2018-08-19] MEDS: CYCLOBENZAPRINE HCL 10 MG TABLET (FP) PO PRN (05:44)
--- NOTE | 2018-08-19 09:08 | PN ---
[facility] COWS - Scale Resting Pulse: 0= [place] 80 or Below Sweatin= No chills or Flushing Restless Observation: 0= Sits Still Pupil Size: 0= Normal to Room Light Bone or Joint Aches: 1= Mild Discomfort Runny Nose/ Eye Tearin= None GI Upset > 30mins: 1= Stomach Cramp Tremor Observation of Outstretched Hands: 1= Tremor [place], Not Seen Yawning Observation: 0= None Anxiety or Irritability: 1=Feels Anxious/Irritable Goose Flesh Skin: 0=Smooth Skin COWS Score: 4 BHS Progress Note (SOAP) Subjective: feeling better less tremor mild body aches sleep better at night social with peers in day room Objective: 08/19/18 09:22 Vital Signs Temperature 97.4 F L 08/19/18 09:16 Pulse Rate 82 08/19/18 09:16 Respiratory Rate 18 08/19/18 09:16 Blood Pressure 113/68 08/19/18 09:16 O2 Sat by Pulse Oximetry (%) Laboratory Last Values WBC 9.6 K/mm3 (4.0-10.0) 08/17/18 07:40 RBC 4.59 M/mm3 (4.00-5.60) 08/17/18 07:40 Hgb 14.4 GM/dL (11.7-16.9) 08/17/18 07:40 Hct 41.6 % (35.4-49) 08/17/18 07:40 MCV 90.7 fl (80-96) 08/17/18 07:40 MCH 31.4 pg (25.7-33.7) 08/17/18 07:40 MCHC 34.7 g/dl (32.0-35.9) 08/17/18 07:40 RDW 14.6 % (11.9-15.9) 08/17/18 07:40 Plt Count 305 K/MM3 (134-434) 08/17/18 07:40 MPV 7.9 fl (7.5-11.1) 08/17/18 07:40 Absolute Neuts (auto) 5.3 K/mm3 (1.5-8.0) 08/17/18 07:40 Neutrophils % 55.4 % (42.8-82.8) D 08/17/18 07:40 Lymphocytes % 32.8 % (8-40) D 08/17/18 07:40 Monocytes % 8.7 % (3.8-10.2) D 08/17/18 07:40 Eosinophils % 2.2 % (0-4.5) D 08/17/18 07:40 Basophils % 0.9 % (0-2.0) D 08/17/18 07:40 Nucleated RBC % 0 % (0-0) 08/17/18 07:40 Sodium 134 mmol/L (136-145) L 08/16/18 07:00 Potassium 4.2 mmol/L (3.5-5.1) 08/16/18 07:00 Chloride 98 mmol/L (98-107) 08/16/18 07:00 Carbon Dioxide 25 mmol/L (21-32) 08/16/18 07:00 Anion Gap 11 MMOL/L (8-16) 08/16/18 07:00 BUN 14 mg/dL (7-18) 08/16/18 07:00 Creatinine 0.9 mg/dL (0.55-1.3) 08/16/18 07:00 Creat Clearance w eGFR > 60 (>60) 08/16/18 07:00 POC Glucometer 126 UNITS (80-120) 08/19/18 05:39 Random Glucose 149 mg/dL (74-106) H 08/16/18 07:00 Calcium 9.5 mg/dL (8.5-10.1) 08/16/18 07:00 Total Bilirubin 1.7 mg/dL (0.2-1) H 08/16/18 07:00 AST 14 U/L (15-37) L 08/16/18 07:00 ALT 27 U/L (13-61) 08/16/18 07:00 Alkaline Phosphatase 67 U/L (45-117) 08/16/18 07:00 Total Protein 7.7 g/dl (6.4-8.2) 08/16/18 07:00 Albumin 4.7 g/dl (3.4-5.0) 08/16/18 07:00 Urine Color Straw 08/15/18 13:07 Urine Appearance Clear 08/15/18 13:07 Urine pH 7.0 (5.0-8.0) 08/15/18 13:07 Ur Specific [place] 1.005 (1.010-1.035) L 08/15/18 13:07 Urine Protein Negative (NEGATIVE) 08/15/18 13:07 Urine Glucose (UA) Negative (NEGATIVE) 08/15/18 13:07 Urine Ketones Negative (NEGATIVE) 08/15/18 13:07 Urine Blood 1+ (NEGATIVE) H 08/15/18 13:07 Urine Nitrite Negative (NEGATIVE) 08/15/18 13:07 Urine Bilirubin Negative (<2.0 mg/dL) 08/15/18 13:07 Urine Urobilinogen Negative mg/dL (0.2-1.0) 08/15/18 13:07 Ur Leukocyte Esterase Negative (NEGATIVE) 08/15/18 13:07 Urine WBC (Auto) <1 /hpf (3-5) 08/15/18 13:07 Urine RBC (Auto) 1 /hpf (0-3) 08/15/18 13:07 RPR Titer Nonreactive (NONREACTIVE) 08/16/18 07:00 lab nated Assessment: 08/19/18 09:22 mild withdrawal sx Plan: continue detox
[2018-08-19 09:17] VITALS: BP 113/68; PULSE 82; TEMP 97.4
[2018-08-19] MEDS ORDERED: METHADONE HCL 10 MG TABLET (FOR DETOX USE ONLY) PO ONE (10:00)
[2018-08-19] MEDS: LIDOCAINE 5% TOPICAL PATCH TP SCH (10:02)
[2018-08-19] MEDS: NICOTINE 21 MG/24 HOURS TOPICAL PATCH TD SCH (10:02)
[2018-08-19] MEDS: PRENATAL VITAMINS W/ FOLIC ACID TABLET (FP) PO SCH (10:02)
[2018-08-19] MEDS: PANTOPRAZOLE 40 MG TABLET (FP) PO SCH (10:03)
--- NOTE | 2018-08-19 10:24 | DS ---
[facility] Detox Discharge Summary Admission Date: 08/15/18 Discharge Date: 08/19/18 - History Present History: Opioid Dependence Additional Comments: 33 years old male admitted on 08/15/18 for opiate withdrawal stabilization feeling better today alert no acute distress denies suicidal ideation preferred begin chemical rehab process today that he wants to go to methadone assisted program - Physical Exam Results Vital Signs: Vital Signs Temperature 97.4 F L 08/19/18 09:16 Pulse Rate 82 08/19/18 09:16 Respiratory Rate 18 08/19/18 09:16 Blood Pressure 113/68 08/19/18 09:16 O2 Sat by Pulse Oximetry (%) Pertinent Admission Physical Exam Findings: opiate withdrawal sx Laboratory Last Values WBC 9.6 K/mm3 (4.0-10.0) 08/17/18 07:40 RBC 4.59 M/mm3 (4.00-5.60) 08/17/18 07:40 Hgb 14.4 GM/dL (11.7-16.9) 08/17/18 07:40 Hct 41.6 % (35.4-49) 08/17/18 07:40 MCV 90.7 fl (80-96) 08/17/18 07:40 MCH 31.4 pg (25.7-33.7) 08/17/18 07:40 MCHC 34.7 g/dl (32.0-35.9) 08/17/18 07:40 RDW 14.6 % (11.9-15.9) 08/17/18 07:40 Plt Count 305 K/MM3 (134-434) 08/17/18 07:40 MPV 7.9 fl (7.5-11.1) 08/17/18 07:40 Absolute Neuts (auto) 5.3 K/mm3 (1.5-8.0) 08/17/18 07:40 Neutrophils % 55.4 % (42.8-82.8) D 08/17/18 07:40 Lymphocytes % 32.8 % (8-40) D 08/17/18 07:40 Monocytes % 8.7 % (3.8-10.2) D 08/17/18 07:40 Eosinophils % 2.2 % (0-4.5) D 08/17/18 07:40 Basophils % 0.9 % (0-2.0) D 08/17/18 07:40 Nucleated RBC % 0 % (0-0) 08/17/18 07:40 Sodium 134 mmol/L (136-145) L 08/16/18 07:00 Potassium 4.2 mmol/L (3.5-5.1) 08/16/18 07:00 Chloride 98 mmol/L (98-107) 08/16/18 07:00 Carbon Dioxide 25 mmol/L (21-32) 08/16/18 07:00 Anion Gap 11 MMOL/L (8-16) 08/16/18 07:00 BUN 14 mg/dL (7-18) 08/16/18 07:00 Creatinine 0.9 mg/dL (0.55-1.3) 08/16/18 07:00 Creat Clearance w eGFR > 60 (>60) 08/16/18 07:00 POC Glucometer 126 UNITS (80-120) 08/19/18 05:39 Random Glucose 149 mg/dL (74-106) H 08/16/18 07:00 Calcium 9.5 mg/dL (8.5-10.1) 08/16/18 07:00 Total Bilirubin 1.7 mg/dL (0.2-1) H 08/16/18 07:00 AST 14 U/L (15-37) L 08/16/18 07:00 ALT 27 U/L (13-61) 08/16/18 07:00 Alkaline Phosphatase 67 U/L (45-117) 08/16/18 07:00 Total Protein 7.7 g/dl (6.4-8.2) 08/16/18 07:00 Albumin 4.7 g/dl (3.4-5.0) 08/16/18 07:00 Urine Color Straw 08/15/18 13:07 Urine Appearance Clear 08/15/18 13:07 Urine pH 7.0 (5.0-8.0) 08/15/18 13:07 Ur Specific [place] 1.005 (1.010-1.035) L 08/15/18 13:07 Urine Protein Negative (NEGATIVE) 08/15/18 13:07 Urine Glucose (UA) Negative (NEGATIVE) 08/15/18 13:07 Urine Ketones Negative (NEGATIVE) 08/15/18 13:07 Urine Blood 1+ (NEGATIVE) H 08/15/18 13:07 Urine Nitrite Negative (NEGATIVE) 08/15/18 13:07 Urine Bilirubin Negative (<2.0 mg/dL) 08/15/18 13:07 Urine Urobilinogen Negative mg/dL (0.2-1.0) 08/15/18 13:07 Ur Leukocyte Esterase Negative (NEGATIVE) 08/15/18 13:07 Urine WBC (Auto) <1 /hpf (3-5) 08/15/18 13:07 Urine RBC (Auto) 1 /hpf (0-3) 08/15/18 13:07 RPR Titer Nonreactive (NONREACTIVE) 08/16/18 07:00 lab noted - Treatment Hospital Course: Detox Protocol Followed, Detoxed Safely, Responded well, Discharged Condition Good, Rehab Referral Accepted Patient has Accepted a Rehab Referral to: [facility] methadone [facility] - Medication Discharge Medications: Ambulatory Orders Naloxone HCl [Narcan] 4 mg NS ASDIR PRN #1 spray 08/19/18 - Diagnosis (1) History of upper gastrointestinal bleeding Status: Chronic (2) Nicotine dependence Status: Acute Qualifiers: Nicotine product type: cigarettes Substance use status: in withdrawal Qualified Code(s): F17.213 - Nicotine dependence, cigarettes, with withdrawal (3) Opioid dependence with withdrawal Status: Acute (4) Weight loss Status: Acute - AMA Did Patient Leave Against Medical Advice: No
[2018-08-20] MEDS ORDERED: METHADONE HCL 5 MG TABLET (FOR DETOX USE ONLY) PO ONE (06:00)
== END 2018-08-19 11:05 | disposition home or self-care (01) | DRG 773 ==
LOC: YASAS 09:36 → Y3N 11:47
PROVIDERS: ADMIT Surgery; ATTEND Surgery
PROC: HZ2ZZZZ Detoxification Services for Substance Abuse Treatment (ICD-10-PCS; principal; 2018-08-15)
DX: F11.23 Opioid dependence with withdrawal (principal); F14.20 Cocaine dependence, uncomplicated; F17.213 Nicotine dependence, cigarettes, with withdrawal; D72.829 Elevated white blood cell count, unspecified; Z87.19 Personal history of other diseases of the digestive system
CPT/HCPCS: 36415; 80053; 80307; 81003; 81015; 82962; 83690; 85025; 85027; 86593; 93005; 93010; 99281-25; J0131; J0735; J7030